=== PATIENT | female | born 1950 | race Caucasian/White ===

== ENCOUNTER → 2017-01-21 | Outpatient (CLI) | payer MEDICAID ==
--- NOTE | ~2017-01-21 | SLPIE ---
[place], [place] DOPE MIXER INITIAL EVALUATION NAME: GUICHO CHARLES UNIT #: [id number] ROOM: DOCTOR: JR.EUGENE Nic SANDERS Speech Language Pathology Initial Evaluation Page 1 1 of Patient Name: GUICHO CHARLES Date: 01/21/2017 12:29 PM : 1950 SOC Date: 01/21/2017 Provider: [facility] Provider #: [id number] Treating Clinician: Ami Vásquez CCC=DOPE MIXER Referring Physician: JR.EUGENE Nic SANDERS Patient Information Address: [address] [place] [address] Physician: JR.EUGENE Nic SANDERS Physician #: [facility], [facility], Zip: [place] [address] Occupation: Unknown # of Approved Visits: 0 Gender: Female Medicaid #: [id number] 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 Clinical Findings Functional Goals Functional Limitation Reporting Swallowing G8996 - Swallowing functional limitation, current status at therapy episode outset and at reporting intervals Current Status: CI - At least 1 percent but less than 20 percent impaired, limited or restricted G8997 - Swallowing functional limitation, projected goal status, at therapy episode outset, at reporting intervals, and at discharge or to end reporting Goal Status: CI - At least 1 percent but less than 20 percent impaired, limited or restricted G8998 - Swallowing functional limitation, discharge status, at discharge from therapy or to end reporting Discharge Status: CI - At least 1 percent but less than 20 percent impaired, limited or restricted Interventions (CPT Code) MOTION FLUOROSCOPY/SWALLOW 10685 01/21/2017 12:30:40 PM Ami Vásquez CCC=DOPE MIXER Date/Time [place], [place] DOPE MIXER INITIAL EVALUATION NAME: GUICHO CHARLES UNIT #: [id number] ROOM: DOCTOR: JR.EUGENE Nic SANDERS [facility] License #: [id number] CM:SLPIE 1235 1235 [facility]
--- NOTE | ~2017-01-21 | SLPPOC ---
[place], [place] CRITICAL SYSTEMS TECHNICIAN PLAN OF CARE NAME: GUICHO CHARLES UNIT #: [id number] ROOM: DOCTOR: JR.EUGENE Nic SANDERS Speech Language Pathology Plan of Care Page 1 1 (Initial Evaluation) of Patient Name: GUICHO CHARLSE Date: 01/21/2017 12:29 PM : 1950 SOC Date: 01/21/2017 Provider: [facility] Provider #: [id number] Treating Clinician: Ami Vásquez CCC=CRITICAL SYSTEMS TECHNICIAN Referring Physician: JR.EUGENE Nic SANDERS Visits From SOC: 1 Medicaid #: [id number] Onset Date Description Code Primary Diagnosis: 01/21/2017 R13.11 Dysphagia, oral phase Subjective Comments: Patient identified by name and date of . Initial Level Goals Functional Limitation Reporting Swallowing G8996 - Swallowing functional limitation, current status at therapy episode outset and at reporting intervals Current Status: CI - At least 1 percent but less than 20 percent impaired, limited or restricted G8997 - Swallowing functional limitation, projected goal status, at therapy episode outset, at reporting intervals, and at discharge or to end reporting Goal Status: CI - At least 1 percent but less than 20 percent impaired, limited or restricted G8998 - Swallowing functional limitation, discharge status, at discharge from therapy or to end reporting Discharge Status: CI - At least 1 percent but less than 20 percent impaired, limited or restricted Interventions (CPT Code) MOTION FLUOROSCOPY/SWALLOW 59150 01/21/2017 12:30:40 PM JR.EUGENE Nic SANDERS Date/Time Ami Vásquez CCC=CRITICAL SYSTEMS TECHNICIAN Date I certify the need for these services furnished under this plan of treatment while under my care. State License #: [id number] CM:SLPPOC 1235 1235 [facility] TH[facility]
--- NOTE | ~2017-01-21 | SLPPN ---
[place], [place] [employer] PROGRESS NOTE NAME: GUICHO CHARLES UNIT #: [id number] ROOM: DOCTOR: JR.EUGENE Nic SANDERS Speech Language Pathology Treatment Note Page 1 1 of Patient Name: GUICHO CHARLES Date: 01/21/2017 12:30 PM : 1950 SOC Date: 01/21/2017 Provider: [facility] Provider #: [id number] Treating Clinician: Ami Vásquez CCC=[employer] Referring Physician: JR.EUGENE Nic SANDERS Onset Date Description Code Primary Diagnosis: 01/21/2017 R13.11 Dysphagia, oral phase Time In: 11:30 AM Time Out: 12:15 PM [employer] Interventions and CPT Codes Consisted of: CPT Code Modifiers Minutes Units MOTION FLUOROSCOPY/SWALLOW 31987 45 1 Total Minutes: 45 Total Timed Minutes: 0 Total Untimed Minutes: 45 Total Units: 1 Total Timed Units: 0 Total Untimed Units: 1 01/21/2017 12:32:32 PM Ami Vásquez CCC=[employer] Date/Time State License #: [id number] CM:ROGERPN 1241 1241 [facility] THERAP[facility]
== END | disposition home or self-care (01) ==
LOC: RAD/SH 11:10
DX: R47.02 Dysphasia (principal); R13.11 Dysphagia, oral phase

== ENCOUNTER 2019-03-02 16:01 | Inpatient (IN) | payer MEDICAID ==
[~2019-03-02] VITALS: Ht 134.6 cm; Wt 104.4 kg
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
--- NOTE | ~2019-03-02 | EKG ---
[place], [place] ELECTROCARDIOGRAM REPORT NAME: GUICHO CHARLES UNIT #: [id number] ROOM: 512 DOCTOR: LEANDRO DRAFT REPORT BIRTHDATE: [birth year] [facility] Test Date: 2019-03-02 Test Time: 16:54:22 Pat Name: GUICHO CHARLES Department: Room: 512 Gender: F Milling Operator: Malini Cortes : 1950 Requested By: PILAR MONTESINOS Order Number: [id number] Reading MD: Tony Zarate Measurements Intervals [place] Rate: 85 P: 56 [place]: 194 QRS: 60 QRSD: 85 T: 6 QT: 393 QTc: 468 Interpretive Statements Sinus rhythm Low voltage, precordial leads Consider anterior infarct No previous ECG available for comparison Electronically Signed On 03-03-2019 12:30:25 PDT by Tony Zarate CM:EKGRPT:ELECTROCARDIOGRAM REPORT 1654 1230 PLIAR REEEVS DRAFT REPORT PILAR MONTESINOS MD
[~2019-03-02 16:01] MED LIST: ABILIFY30 MG PO; ADVAIR 250/501 EA PO; ARTIFICIAL TEA1 EACH OP; ASPIRIN CHEWABL81 MG PO; AZELASTINE HYDRO6 M1 INH; B121000 MCG/1 IM; CLONIDINE0.2 MG PO; COZAAR50 M1 PO; DEPAKOTE250 MG PO; EFFEXOR-XR150 MG PO; G-FENESIN400 MG PO; HYDROXYZINE HCL25 MG PO; IRON325 M1 PO; ISOSORBIDE MON120 MG PO; Ipratropium Brom3 ML INH; LIDOCAINE HC28.35 GM T; LIPITOR10 MG PO; MELATONIN10 M2 PO; MIRALAX17 GM PO; MULTIVITAMINS1 EAC1 PO; MYRBETRIQ50 M1 PO; Motrin,Rufen800 MG PO; NEURONTIN300 MG PO; OMEGA DHA92 MG PO; OMEPRAZOLE40 MG PO; OXYGEN NAS; PRAVACHOL40 MG PO; PRISTIQ50 MG PO; RHINOCORT ALL8.43 ML INH; ROBITUSSIN-DM 110 ML PO; SENNA-LAX8.6 MG PO; SINGULAIR10 M1 PO; TESSALON PERLE100 MG PO; TRAMADOL HCL50 MG PO; ULTRAM50 MG PO; VISTARIL50 MG PO; VITAMIN D5000 UNIT PO; VRAYLAR3 MG PO; ZANTAC 150150 MG PO; ZYRTEC10 MG PO
[2019-03-02 16:53] LABS: BASO # 0.1 10*3/uL (0.0-0.1); EOS # 0.2 10*3/uL (0.0-0.4); EOS % 2.6 % (1.0-4.0); HEMATOCRIT 35.8 % (37.0-47.0); HEMOGLOBIN 11.9 g/dl (12.0-16.0); LYMPH # 1.3 10*3/uL (1.3-4.4); LYMPH % 20.9 % (27.0-41.0); MEAN CORPUSCULAR HGB 28.3 pg (27.0-31.0); MEAN CORPUSCULAR HGB CONC 33.2 g/dl (33.0-37.0); MEAN PLATELET VOLUME 10.8 fl (9.6-12.3); MONO # 0.8 10*3/uL (0.1-1.0); MONO % 13.2 % (3.0-9.0); NEUT # 3.9 10*3/uL (2.3-7.9); NEUT % 61.8 % (47.0-73.0); PLATELET COUNT AUTOMATED 203 10*3/uL (130-400); RED BLOOD COUNT 4.21 10*6/uL (4.10-5.10); RED CELL DISTRI WIDTH 13.1 % (0-14.5); WHITE BLOOD COUNT 6.2 10*3/uL (4.8-10.8)
[2019-03-02 17:16] LABS: ALBUMIN 3.2 gm/dl (3.1-4.5); ALKALINE PHOSPHATASE 116 U/L (45-117); BUN 26 mg/dl (7-24); CHLORIDE 101 mmol/L (98-107); CREATININE 1.22 mg/dL (0.55-1.02); POTASSIUM 3.5 mmol/L (3.5-5.1); SGOT/AST 16 IU/L (3-35); SGPT/ALT 18 U/L (12-78); SODIUM 139 mmol/L (136-145); TOTAL PROTEIN 6.7 gm/dL (6.4-8.2)
[2019-03-02 17:27] LABS: ETHYL ALCOHOL < 3.0 mg/dl (<3)
[2019-03-02 18:51] LABS: BILIRUBIN NEGATIVE (NEGATIVE); BLOOD 1+ (NEGATIVE); CLARITY CLOUDY (CLEAR); COLOR YELLOW (YELLOW); GLUCOSE NEGATIVE (NEGATIVE); KETONE NEGATIVE (NEGATIVE); LEUKO ESTERASE 3+ (NEGATIVE); NITRITE POSITIVE (NEGATIVE); SPECIFIC GRAVITY <= 1.005 (1.005-1.030); UROBILINOGEN 0.2 E.U./dl (0.2-1.0)
[2019-03-02 19:11] LABS: BACTERIA 2+; URINE AMPHETAMINES < 1000 (1000ng/ml); URINE BARBITURATES < 200 (200ng/ml); URINE BENZODIAZEPINES < 200 (200ng/ml); URINE CANNABINOIDS (THC) < 50 (50ng/ml); URINE COCAINE < 300 (300ng/ml); URINE METHADONE < 300 (300ng/ml); URINE OPIATES < 300 (300ng/ml); WBC TNTC wbc/hpf (0-5)
[2019-03-02 19:16] LABS: URINE PHENCYCLIDINE < 25 (25ng/ml)
[2019-03-02 20:00] VITALS: BP 141/59
[2019-03-02 22:30] VITALS: BP 151/68
[2019-03-03] VITALS: BP 112/69
[2019-03-03] MEDS ORDERED: ARTIFICIAL TEA1 EACH OP (01:05)
[2019-03-03] MEDS ORDERED: ASPIRIN325 M2 PO (01:06)
[2019-03-03] MEDS ORDERED: BUMETANIDE1 MG PO (01:07)
[2019-03-03] MEDS ORDERED: CARDIZEM120 MG PO (01:08)
[2019-03-03] MEDS ORDERED: CLONIDINE HYDR0.1 MG PO (01:11)
[2019-03-03] MEDS ORDERED: DOCUSATE SODIU100 M2 PO (01:41)
[2019-03-03] MEDS ORDERED: FLONASE ALLERG9.9 ML NAS (01:47)
[2019-03-03] MEDS ORDERED: FLORASTOR250 MG PO (01:50)
[2019-03-03] MEDS ORDERED: HUMULIN R100 UNIT/1 SQ (01:54)
[2019-03-03] MEDS ORDERED: MAG6464 MG PO (01:56)
[2019-03-03] MEDS ORDERED: MILK OF MA400 MG/5 M PO (01:57)
[2019-03-03] MEDS ORDERED: MELATONIN3 MG PO (01:58)
[2019-03-03] MEDS ORDERED: MIRALAX17 GM PO (01:59)
[2019-03-03] MEDS ORDERED: OMEGA 3-6-9 CO400 MG PO (02:06)
[2019-03-03] MEDS ORDERED: OXYBUTYNIN10 MG PO (02:11)
[2019-03-03] MEDS ORDERED: PROTONIX40 MG PO (02:12)
[2019-03-03] MEDS ORDERED: REQUIP0.25 M1 PO (02:13)
[2019-03-03] MEDS ORDERED: SINGULAIR10 M1 PO (02:14)
[2019-03-03] MEDS ORDERED: TRINTELLIX20 MG PO (02:16)
[2019-03-03 06:55] LABS: BUN 23 mg/dl (7-24); CHLORIDE 104 mmol/L (98-107); SODIUM 143 mmol/L (136-145)
[2019-03-03 07:08] LABS: BASO # 0.1 10*3/uL (0.0-0.1); BASO % 1.1 % (0.0-1.0); EOS # 0.2 10*3/uL (0.0-0.4); EOS % 4.6 % (1.0-4.0); HEMATOCRIT 31.4 % (37.0-47.0); HEMOGLOBIN 10.1 g/dl (12.0-16.0); LYMPH # 1.1 10*3/uL (1.3-4.4); LYMPH % 25.1 % (27.0-41.0); MEAN CELL VOLUME 87.5 fl (81.0-99.0); MEAN CORPUSCULAR HGB 28.1 pg (27.0-31.0); MEAN CORPUSCULAR HGB CONC 32.2 g/dl (33.0-37.0); MEAN PLATELET VOLUME 11.2 fl (9.6-12.3); MONO # 0.8 10*3/uL (0.1-1.0); MONO % 17.2 % (3.0-9.0); NEUT # 2.3 10*3/uL (2.3-7.9); NEUT % 51.6 % (47.0-73.0); PLATELET COUNT AUTOMATED 181 10*3/uL (130-400); RED BLOOD COUNT 3.59 10*6/uL (4.10-5.10); RED CELL DISTRI WIDTH 13.1 % (0-14.5); WHITE BLOOD COUNT 4.5 10*3/uL (4.8-10.8)
[2019-03-03 08:00] VITALS: BP 143/64
[2019-03-03 12:00] VITALS: BP 108/43
[2019-03-03 16:00] VITALS: BP 125/46
[2019-03-03 20:00] VITALS: BP 132/53
[2019-03-04] VITALS: BP 120/45
[2019-03-04 08:00] VITALS: BP 108/88
[2019-03-04 09:58] LABS: BUN 21 mg/dl (7-24); CHLORIDE 103 mmol/L (98-107); CREATININE 0.97 mg/dL (0.55-1.02); SODIUM 139 mmol/L (136-145)
[2019-03-04 10:00] LABS: POTASSIUM 4.2 mmol/L (3.5-5.1)
[2019-03-04 12:00] VITALS: BP 112/86
[2019-03-04 16:00] VITALS: BP 120/76
[2019-03-04 20:00] VITALS: BP 148/73
[2019-03-05] VITALS: BP 95/67
[2019-03-05 08:00] VITALS: BP 141/59
[2019-03-05 12:00] VITALS: BP 132/69
[2019-03-05 16:00] VITALS: BP 114/46
[2019-03-05 20:00] VITALS: BP 144/73
[2019-03-06] VITALS: BP 113/54
[2019-03-06 07:01] LABS: BASO # 0.1 10*3/uL (0.0-0.1); BASO % 1.3 % (0.0-1.0); EOS # 0.3 10*3/uL (0.0-0.4); EOS % 8.4 % (1.0-4.0); HEMATOCRIT 34.9 % (37.0-47.0); HEMOGLOBIN 11.2 g/dl (12.0-16.0); LYMPH # 1.1 10*3/uL (1.3-4.4); LYMPH % 28.5 % (27.0-41.0); MEAN CELL VOLUME 86.6 fl (81.0-99.0); MEAN CORPUSCULAR HGB 27.8 pg (27.0-31.0); MEAN CORPUSCULAR HGB CONC 32.1 g/dl (33.0-37.0); MEAN PLATELET VOLUME 10.7 fl (9.6-12.3); MONO # 0.5 10*3/uL (0.1-1.0); MONO % 13.1 % (3.0-9.0); NEUT # 1.8 10*3/uL (2.3-7.9); NEUT % 47.9 % (47.0-73.0); PLATELET COUNT AUTOMATED 191 10*3/uL (130-400); RED BLOOD COUNT 4.03 10*6/uL (4.10-5.10); RED CELL DISTRI WIDTH 12.9 % (0-14.5); WHITE BLOOD COUNT 3.8 10*3/uL (4.8-10.8)
[2019-03-06 07:11] LABS: BUN 21 mg/dl (7-24); CHLORIDE 104 mmol/L (98-107); CREATININE 0.86 mg/dL (0.55-1.02); POTASSIUM 3.7 mmol/L (3.5-5.1); SODIUM 140 mmol/L (136-145)
[2019-03-06 08:00] VITALS: BP 118/54
[2019-03-06] MEDS ORDERED: ROPINIROLE HY0.25 MG PO (12:10)
[2019-03-06] MEDS ORDERED: ULTRAM50 MG PO (12:10)
[2019-03-06] MEDS ORDERED: DILTIAZEM HCL90 MG PO (12:10)
== END 2019-03-06 15:20 | DRG 871 ==
LOC: ED 16:01 → 5E 21:16 → EDHOLD 21:16 → 5E 21:42
PROVIDERS: Emergency Medicine; Family Medicine; Student in an Organized Health Care Education/Training Program; ADMIT Emergency Medicine
DX: A41.9 Sepsis, unspecified organism (principal); N17.1 Acute kidney failure with acute cortical necrosis; N17.0 Acute kidney failure with tubular necrosis; N39.0 Urinary tract infection, site not specified; F23 Brief psychotic disorder; E55.9 Vitamin D deficiency, unspecified; R00.1 Bradycardia, unspecified; E86.0 Dehydration; D64.9 Anemia, unspecified; D72.819 Decreased white blood cell count, unspecified; E87.6 Hypokalemia; G89.29 Other chronic pain; E11.65 Type 2 diabetes mellitus with hyperglycemia; J44.9 Chronic obstructive pulmonary disease, unspecified; M19.90 Unspecified osteoarthritis, unspecified site; G47.00 Insomnia, unspecified; R65.20 Severe sepsis without septic shock; F41.9 Anxiety disorder, unspecified; F31.9 Bipolar disorder, unspecified; I10 Essential (primary) hypertension; E78.5 Hyperlipidemia, unspecified; I25.10 Atherosclerotic heart disease of native coronary artery without angina pectoris; E66.01 Morbid (severe) obesity due to excess calories; Z79.4 Long term (current) use of insulin; Z88.2 Allergy status to sulfonamides; Z88.8 Allergy status to other drugs, medicaments and biological substances; Z88.6 Allergy status to analgesic agent; Z91.018 Allergy to other foods; Z87.11 Personal history of peptic ulcer disease; Z79.82 Long term (current) use of aspirin; Z79.899 Other long term (current) drug therapy

== ENCOUNTER 2019-03-08 01:39 | Emergency (ER) | payer MEDICAID ==
[~2019-03-08 01:39] MED LIST changes: +ASPIRIN325 M2 PO; +BUMETANIDE1 MG PO; +CARDIZEM120 MG PO; +CLONIDINE HYDR0.1 MG PO; +DILTIAZEM HCL90 MG PO; +DOCUSATE SODIU100 M2 PO; +FLONASE ALLERG9.9 ML NAS; +FLORASTOR250 MG PO; +HUMULIN R100 UNIT/1 SQ; +MAG6464 MG PO; +MELATONIN3 MG PO; +MILK OF MA400 MG/5 M PO; +OMEGA 3-6-9 CO400 MG PO; +OXYBUTYNIN10 MG PO; +PROTONIX40 MG PO; +REQUIP0.25 M1 PO; +ROPINIROLE HY0.25 MG PO; +TRINTELLIX20 MG PO
== END 2019-03-08 03:30 | disposition home or self-care (01) ==
LOC: ED 01:39
DX: Z00.00 Encounter for general adult medical examination without abnormal findings (principal); J44.9 Chronic obstructive pulmonary disease, unspecified; E78.5 Hyperlipidemia, unspecified; I10 Essential (primary) hypertension; E11.9 Type 2 diabetes mellitus without complications; E66.01 Morbid (severe) obesity due to excess calories; M19.90 Unspecified osteoarthritis, unspecified site; Z88.8 Allergy status to other drugs, medicaments and biological substances; Z88.6 Allergy status to analgesic agent; Z88.2 Allergy status to sulfonamides; Z79.899 Other long term (current) drug therapy; Z79.82 Long term (current) use of aspirin; Z68.42 Body mass index [BMI] 45.0-49.9, adult